=== PATIENT | female | born 1975 | race African-American/Black ===

== ENCOUNTER 2023-09-06 16:55 | Emergency (ER) | payer MEDICAID ==
[~2023-09-06] VITALS: Ht 170.2 cm; Wt 77.0 kg
[2023-09-06 17:19] VITALS: BP 135/71; PULSE 68; RESP 18; TEMP 98.5; O2SAT 100
[2023-09-06] MEDS ORDERED: ACETAMINOPHEN 325MG TABLET PO NR (18:00)
== END 2023-09-06 21:26 | disposition home or self-care (01) ==
LOC: ER 16:55
DX: M25.521 Pain in right elbow (principal); W18.39XA Other fall on same level, initial encounter; Y93.89 Activity, other specified; Y92.89 Other specified places as the place of occurrence of the external cause; Y99.8 Other external cause status
CPT/HCPCS: 73080; 99283; Z7610 ×2